=== PATIENT | male | born 1995 | race Caucasian/White ===

== ENCOUNTER 2018-04-21 11:00 | Emergency (ER) | payer SELFPAY ==
--- NOTE | 2018-04-21 11:34 | ER ---
Nurse's Notes [facility] Name: Chace Blevins Age: 23 yrs Sex: Male : 1995 Arrival Date: 04/21/2018 Time: 11:04 Bed Waiting Private MD: None, None Diagnosis: ED Course: 04/21 11:04 Patient arrived in ED. sb2 11:05 None, None is Private Physician. sb2 11:18 Patient's name was called from ER lobby. No response. hb 11:30 Patient's name was called from ER lobby. Unable to locate patient. Will disposition as hb left without being seen by a provider. Administered Medications: No medications were administered Outcome: 11:33 Patient left the ED. hb Signatures: Jackie Haq RN RN Marina Thompson sb2
== END 2018-04-21 11:33 | disposition left against medical advice (07) ==
LOC: ER 11:00
DX: Z53.21 Procedure and treatment not carried out due to patient leaving prior to being seen by health care provider (principal)

== ENCOUNTER 2024-12-09 11:32 | Emergency (ER) | payer SELFPAY ==
--- NOTE | 2024-12-09 12:36 | RAD REPORT ---
EXAM: CT brain without contrast HISTORY: Headache COMPARISON: None TECHNIQUE: Multiple contiguous axial images were obtained and a CT of the brain without contrast.. Sagittal and coronal reconstruction performed. Automated exposure control, adjustment of the mA and/or kV according to patient size, and/or iterative reconstruction. Unless otherwise specified, incidental f indings do not require dedicated imaging follow-up FINDINGS: Some images are degraded by beam hardening artifact. An intracranial bleed is not seen Ventricles are normal caliber No extra-axial fluid collection noted No significant hypodensity within the brain No fluid within the visualized sinuses or mastoids noted. IMPRESSION: No acute intracranial abnormality noted. If the patient continues to have symptoms to suggest an acute intracranial abnormality then MRI of th e brain would be recommended.
--- NOTE | 2024-12-09 12:54 | RAD REPORT ---
EXAM: Chest Abdomen Pelvis W Cont CLINICAL INDICATION: Chest and abdominal pain TECHNIQUE: CT chest, abdomen and pelvis was performed, with 100 cc Isovue-300 IV contrast, as per de partment protocol. Axial, sagittal and coronal reconstructions were obtained. One or more of the following dose reduction techniques were used: Automated exposure control, adjustment of the mA and/o r kV according to the patient size, and/or iterative reconstruction. Unless otherwise specified, incidental findings do not require dedicated imaging follow-up. [id number]. Oral contrast not given. This limits evaluation of the bowel. COMPARISON: 2014 FINDINGS: Lungs are clear. No mediastinal or hilar lymphadenopathy. No pleural effusion.. No pericardial effusion Liver, spleen, pancreas, adrenals, kidneys and bladder appear unremarkable. There is no evidence of diverticulitis Normal appendix IMPRESSION: No acute abnormality of the chest/abdomen/pelvis seen
[2024-12-09 13:00] LABS: Absolute Eosinophils 0.3 K/uL (0-0.5); Absolute Lymphocytes (CBC) 2.5 K/uL (0.7-4.9); Absolute Monocytes 0.8 K/uL (0.1-1.3); Absolute Neutrophil 4.4 K/uL (1.8-8.0); Basophils % 0.4 % (0-1.3); Eosinophils % 3.9 % (0-4.4); Hematocrit 40.2 % (39.6-49.0); Hemoglobin 14.2 g/dL (13.6-17.9); MCHC 35.3 g/dL (32.0-36.0); MCV 84.8 fL (80-100); MPV 8.1 fL (7.6-11.3); Monocytes % 9.7 % (3.3-12.3); Platelets 249 thou/uL (152-406); RBC Red Blood Cell Count 4.74 M/uL (4.33-5.43); Red Cell Distribution Width 13.2 % (12.1-15.2)
--- NOTE | 2024-12-09 13:00 | RAD REPORT ---
Procedure: Chest Single View HISTORY: Shortness of breath COMPARISON: 2014 FINDINGS: The lungs appear clear of acute infiltrate. No significant pleural effusion noted. The heart is normal size. IMPRESSION: No acute abnormality is displayed.
[2024-12-09 13:05] LABS: PT Prothrombin Time 11.5 SECONDS (10-13.0); Protime INR 1.01
[2024-12-09 13:06] LABS: PTT, Activated Partial Thromb 29.3 SECONDS (27.2-37.4)
[2024-12-09 13:45] LABS: Influenza A Ag Negative; Influenza B Ag Negative; SARS-CoV-2 Antigen Rapid Res Negative (Negative)
[2024-12-09 14:10] LABS: ALT/SGPT 59 U/L (16-61); AST/SGOT 30 U/L (15-37); Albumin 3.6 g/dL (3.4-5.0); Alkaline Phosphatase 107 U/L (45-117); Anion Gap 10.5 mEq/L (5.0-15.0); BUN Blood Urea Nitrogen 11 mg/dL (7-18); Bicarbonate 25 mEq/L (21-32); Bilirubin Total 0.3 mg/dL (0.2-1.0); Globulin 3.6 g/dL (2.3-3.5); Glomerular Filtration Rate 95 ml/min (=/>90); Glucose Level 121 mg/dL (74-106); Magnesium 2.1 mg/dL (1.6-2.4); Potassium 3.5 mEq/L (3.5-5.1); Protein, Total 7.2 g/dL (6.4-8.2); Sodium Level 135 mEq/L (136-145); Troponin High Sensitivity 3.1 pg/mL (<58.9)
[2024-12-09 14:18] LABS: Bilirubin Direct < 0.2 mg/dL (0-0.2); Bilirubin Indirect, Calculated 0.1 mg/dL (0.2-0.8)
--- NOTE | 2024-12-09 15:16 | EDPHYS ---
Physician Documentation [facility] Name: Chace Blevins Age: 29 yrs Sex: Male : 1995 Arrival Date: 12/09/2024 Time: 11:32 Bed 13 Private MD: ED Physician Mika Garcia HPI: 12/09 12:46 This 29 yrs old Male presents to ER via Ambulatory with complaints of Dizziness, rn headache. 12:47 The patient presents with dizziness, generalized weakness, lightheadedness. Onset: The rn symptoms/episode began/occurred 4 day(s) ago. Modifying factors: The symptoms are alleviated by nothing, the symptoms are aggravated by changing position. Severity of symptoms: At their worst the symptoms were moderate in the emergency department the symptoms have improved. The patient has not experienced similar symptoms in the past. Patient reports intermittent dizziness for 4 days. Worse with change in position. Associated with headache, generalized malaise and muscle aches. No fever or chills. Patient denies any chronic medical problems. Does have family history of brain tumor. Denies any neck stiffness. No chest pain or shortness of breath. No abdominal pain. No back pain. No focal neurological deficit. Patient reports feels okay right now, made an appointment with PCP but came in today to see if he could get a quicker answer.. Historical: - Allergies: 11:59 No Known Allergies; ll1 - Home Meds: 11:59 None [Active]; ll1 - PMHx: 11:59 None; ll1 - PSHx: 11:59 None; ll1 - Immunization history:: Adult Immunizations up to date. - Infectious Disease History:: Denies. - Social history:: Smoking status: Patient reports use of chewing tobacco. Reported history of juuling and/or vaping. - Family history:: not pertinent. - Hospitalizations: : No recent hospitalization is reported. ROS: 12:47 Constitutional: Negative for fever, chills, and weight loss, Cardiovascular: Negative rn for chest pain, palpitations, and edema, Respiratory: Negative for shortness of breath, cough, wheezing, and pleuritic chest pain, Abdomen/GI: Negative for abdominal pain, nausea, vomiting, diarrhea, and constipation, MS/Extremity: Negative for injury and deformity, Skin: Negative for injury, rash, and discoloration, Neuro: Negative for numbness, tingling, and seizure, Exam: 12:47 Constitutional: This is a well developed, well nourished patient who is awake, alert, rn and in no acute distress. Appears anxious Head/Face: Normocephalic, atraumatic. Eyes: Pupils equal round and reactive to light, extra-ocular motions intact. Lids and lashes normal. Conjunctiva and sclera are non-icteric and not injected. Cornea within normal limits. Periorbital areas with no swelling, redness, or edema. ENT: Moist mucous membranes, no stridor Neck: Trachea midline, no thyromegaly or masses palpated, and no cervical lymphadenopathy. Supple, full range of motion without nuchal rigidity, or vertebral point tenderness. No Meningismus. Cardiovascular: Regular rate and rhythm . No pulse deficits. Respiratory: Speaking full sentences, unlabored. Abdomen/GI: Soft, non-tender Skin: Warm, dry MS/ Extremity: Pulses equal, no cyanosis. Neurovascular intact. Full, normal range of motion. Equal circumference. Neuro: Awake and alert, GCS 15, oriented to person, place, time, and situation. Cranial nerves II-XII grossly intact. Motor strength 5/5 in all extremities. Sensory grossly intact. Cerebellar exam normal. Normal gait. 17:03 ECG was reviewed by the Attending Physician. rn Vital Signs: 11:59 BP 151 / 101; Pulse 72; Resp 17; Pulse Ox 99% on R/A; Weight 88.45 kg; Height 5 ft. 10 ll1 in. ; Pain 0/10; 12:05 BP 159 / 80; Pulse 84; Resp 20; Pulse Ox 94% ; EtCO2 100 mmHg; kj2 13:00 BP 148 / 82; Pulse 80; Resp 20; Pulse Ox 100% ; kj2 14:56 BP 132 / 72; Pulse 82; Resp 16; Temp 98.1; Pulse Ox 99% ; rk3 11:59 Body Mass Index 27.98 (88.45 kg, 177.8 cm) ll1 11:59 Pain Scale: Adult ll1 MDM: 11:36 Medical Screening Exam initiated rn 15:12 Differential diagnosis: cardiac arrhythmia, generalized weakness, hyperventilation, rn hypovolemia, idiopathic dizziness, near-syncope, vertigo. Data reviewed: vital signs, nurses notes, lab test result(s), EKG, radiologic studies, CT scan, plain films, and as a result, I will discharge patient. Counseling: I had a detailed discussion with the patient and/or guardian regarding the historical points, exam findings, and any diagnostic results supporting the discharge/admit diagnosis, lab results, radiology results, the need for outpatient follow up, to return to the emergency department if symptoms worsen or persist or if there are any questions or concerns that arise at home. Special discussion: I discussed with the patient/guardian in detail that at this point there is no indication for admission to the hospital. It is understood, however, that if the symptoms persist or worsen the patient needs to return immediately for re-evaluation. Based on the history and exam findings, there is no indication for further emergent testing or inpatient evaluation. I discussed with the patient/guardian the need to see the deer farmer for further evaluation of the symptoms. I discussed with the patient/guardian the need to see the neurologist for further evaluation of the symptoms. I discussed with the patient/guardian the need to see the primary care provider for further evaluation of the symptoms. ED course: No acute findings and workup. Negative CT head and chest abdomen pelvis. Labs unremarkable. Patient resting and asymptomatic. Talk to him at length as well as family regarding possible cardiac arrhythmia that is intermittent as well as problems like vertigo and electrolyte problems. Already has appointment with PCP. Recommend referral to cardiology for Holter monitor and given return precautions.. 15:15 ED course: Patient also noted to have mild hypertension here in the emergency room. rn When resting is 132/72. Recommend blood pressure cuff at home and monitoring.. 12/09 12:10 Order name: Basic Metabolic Panel; Complete Time: 14: rn 12/09 12:10 Order name: CBC with Diff; Complete Time: 14:18 rn 12/09 12:10 Order name: Hepatic Function; Complete Time: 14: rn 12/09 12:10 Order name: Magnesium; Complete Time: 14:20 rn 12/09 12:10 Order name: Protime (+inr); Complete Time: 14:18 rn 12/09 12:10 Order name: Ptt, Activated; Complete Time: 14:18 12/09 12:10 Order name: Troponin High Sensitivity; Complete Time: 14: rn 12/09 12:10 Order name: COVID-19 Ag + Flu A+B Ag; Complete Time: 14:18 rn 12/09 12:10 Order name: CT Head Brain wo Cont; Complete Time: 14:18 rn 12/09 12:10 Order name: Chest Single View XRAY; Complete Time: 14:18 rn 12/09 12:32 Order name: Chest Abdomen Pelvis W Cont; Complete Time: 14:18 EDMS 12/09 12:10 Order name: Cardiac monitoring; Complete Time: 12:19 rn 12/09 12:10 Order name: EKG - Nurse/Tech; Complete Time: 12: rn 12/09 12:10 Order name: IV Saline Lock; Complete Time: 13: rn 12/09 12:10 Order name: Labs collected and sent; Complete Time: 13: rn 12/09 12:10 Order name: O2 Per Protocol; Complete Time: 12: rn 12/09 12:10 Order name: O2 Sat Monitoring; Complete Time: 12:20 rn EC:03 Rate is 97 beats/min. Rhythm is regular. QRS [place] is Normal. [place] interval is normal. QRS rn interval is normal. QT interval is normal. No Q waves. T waves are Normal. No ST changes noted. Clinical impression: Normal ECG. Interpreted by me. Reviewed by me. Administered Medications: No medications were administered Disposition Summary: 12/09/24 15:15 Discharge Ordered Notes: Location: Home rn Problem: new rn Symptoms: have improved rn Condition: Stable rn Diagnosis - Dizziness and giddiness rn - Palpitations rn Followup: rn - With: Private Physician - When: As needed - Reason: Recheck today's complaints, Re-evaluation by your physician Discharge Instructions: - Discharge Summary Sheet rn - Dizziness rn - Palpitations rn Forms: - Medication Reconciliation Form rn - Antibiotic licensed journeyman electrician - Prescription Opioid Use rn - Patient Portal Instructions rn - Leadership Thank You Letter rn Signatures: Dispatcher [employer] EDMika Infante MD MD rn Lewis, Lynsay, RN RN ll1 Corrections: (The following items were deleted from the chart) 12:11 12:11 Chest Single View+RAD.RAD.BRZ ordered. EDMS EDMS 12:11 12:11 COVID-19 Ag + Flu A+B Ag+I.LAB.BRZ ordered. EDMS EDMS
--- NOTE | 2024-12-09 15:16 | ER ---
Nurse's Notes [facility] Name: Chace Blevins Age: 29 yrs Sex: Male : 1995 Arrival Date: 12/09/2024 Time: 11:32 Bed 13 Private MD: Diagnosis: Dizziness and giddiness;Palpitations Presentation: 12/09 11:59 Chief complaint: Patient states: Dizzy, nausea, unsteady, slight cough since Friday. ll1 Generalized weakness. Coronavirus screen: Client denies travel out of the [place] in the last 14 days. fatigue, headache, Client presents with at least one sign or symptom that may indicate coronavirus-19. Standard/surgical mask placed on the client. Ebola Screen: Patient denies travel to an Ebola-affected area in the 21 days before illness onset. Initial Sepsis Screen: Does the patient meet any 2 criteria? No. Patient's initial sepsis screen is negative. Does the patient have a suspected source of infection? No. Patient's initial sepsis screen is negative. Risk Assessment: Do you want to hurt yourself or someone else? Patient reports no desire to harm self or others. Onset of symptoms was December 06, 2024. 11:59 Method Of Arrival: Ambulatory ll1 11:59 Acuity: MANUEL 3 ll1 Triage Assessment: 12:02 General: Appears uncomfortable, Behavior is calm, cooperative, appropriate for age, ll1 Reports fatigue for. Neuro: Reports dizziness, headache weakness. GI: Reports nausea. Historical: - Allergies: 11:59 No Known Allergies; ll1 - Home Meds: 11:59 None [Active]; ll1 - PMHx: 11:59 None; ll1 - PSHx: 11:59 None; ll1 - Immunization history:: Adult Immunizations up to date. - Infectious Disease History:: Denies. - Social history:: Smoking status: Patient reports use of chewing tobacco. Reported history of juuling and/or vaping. - Family history:: not pertinent. - Hospitalizations: : No recent hospitalization is reported. Screenin:15 [facility] ED Fall Risk Assessment (Adult) History of falling in the last 3 months, kj2 including since admission No falls in past 3 months (0 pts) Confusion or Disorientation No (0 pts) Intoxicated or Sedated No (0 pts) Impaired Gait No (0 pts) Mobility Assist Device Used No (0 pt) Altered Elimination No (0 pt) Score/Fall Risk Level 0 - 2 = Low Risk Maintained a safe environment, Hourly rounding (assess needs \T\ fall precautionary measures) done. Abuse screen: Denies threats or abuse. Denies injuries from another. Nutritional screening: No deficits noted. Tuberculosis screening: No symptoms or risk factors identified. Assessment: 12:05 General: Appears uncomfortable, Behavior is anxious. Pain: Denies pain. Neuro: Level of kj2 Consciousness is awake, alert, obeys commands, Oriented to person, place, time, situation. Cardiovascular: Patient's skin is warm and dry. says chest feels hot. Respiratory: Airway is patent Respiratory effort is unlabored. GI: No signs and/or symptoms were reported involving the gastrointestinal system. : No signs and/or symptoms were reported regarding the genitourinary system. 13:00 Reassessment: Patient appears in no apparent distress at this time. Patient and/or kj2 family updated on plan of care and expected duration. Pain level reassessed. Patient is alert, oriented x 3, equal unlabored respirations, skin warm/dry/pink. 14:00 Reassessment: Patient appears in no apparent distress at this time. Patient and/or kj2 family updated on plan of care and expected duration. Pain level reassessed. Patient is alert, oriented x 3, equal unlabored respirations, skin warm/dry/pink. 15:07 Reassessment: Patient appears in no apparent distress at this time. Patient and/or kj2 family updated on plan of care and expected duration. Pain level reassessed. Patient is alert, oriented x 3, equal unlabored respirations, skin warm/dry/pink. Vital Signs: 11:59 BP 151 / 101; Pulse 72; Resp 17; Pulse Ox 99% on R/A; Weight 88.45 kg; Height 5 ft. 10 ll1 in. ; Pain 0/10; 12:05 BP 159 / 80; Pulse 84; Resp 20; Pulse Ox 94% ; EtCO2 100 mmHg; kj2 13:00 BP 148 / 82; Pulse 80; Resp 20; Pulse Ox 100% ; kj2 14:56 BP 132 / 72; Pulse 82; Resp 16; Temp 98.1; Pulse Ox 99% ; rk3 11:59 Body Mass Index 27.98 (88.45 kg, 177.8 cm) ll1 11:59 Pain Scale: Adult ll1 ED Course: 11:34 Patient arrived in ED. im 11:36 Mika Garcia MD is Attending Physician. rn 11:52 Arm band placed on Patient placed in an exam room, on a stretcher. ll1 12:02 Triage completed. ll1 12:05 Patient has correct armband on for positive identification. Provided Education on: call kj2 light. 12:12 Addie Saucedo, RN is Primary Nurse. kj2 12:20 Inserted saline lock: 20 gauge in left antecubital area, using aseptic technique. kj2 12:32 CT Head Brain wo Cont In Process Unspecified. EDMS 12:37 Chest Abdomen Pelvis W Cont In Process Unspecified. EDMS 12:41 Chest Single View XRAY In Process Unspecified. EDMS 15:08 No provider procedures requiring assistance completed. kj2 15:19 IV discontinued, intact, bleeding controlled, No redness/swelling at site. Pressure kj2 dressing applied. Administered Medications: No medications were administered Medication: 15:19 VIS not applicable for this client. kj2 Outcome: 15:15 Discharge ordered by . rn 15:19 Discharged to home kj2 15:19 Condition: stable 15:19 Discharge instructions given to patient, family, Instructed on discharge instructions, follow up and referral plans. Demonstrated understanding of instructions, follow-up care, 15:36 Patient left the ED. kj2 Signatures: Dispatcher [employer] EDMS Mika Garcia MD MD rn Lewis, Lynsay, RN RN ll1 Brooke Baca Addie Saucedo RN RN kj2 Katie Colon 3
[2024-12-09 15:46] VITALS: BP 132/72; TEMP 98.1; O2SAT 99
--- NOTE | 2024-12-13 11:34 | EKG ---
Test Date: 2024-12-09 Test Time: 12:16:42 Supervisor Baking: DELORES MEASUREMENT RESULTS: Intervals: Rate: 97 AR: 134 QRSD: 104 QT: 348 QTc: 441 [place]: P: 56 AR: 134 QRS: 22 T: 36 INTERPRETIVE STATEMENTS: Normal sinus rhythm Normal ECG Compared to ECG 12/09/2024 12:14:38 Sinus arrhythmia no longer present ST (T wave) deviation no longer present Prolonged QT interval no longer present Electronically Signed On 12-13-24 11:24:02 CDT by Adeel Hilton
--- NOTE | 2024-12-13 11:34 | EKG ---
Test Date: 2024-12-09 Test Time: 12:14:38 Community Service Technician: DELORES MEASUREMENT RESULTS: Intervals: Rate: 97 FL: 134 QRSD: 104 QT: 450 QTc: 571 [place]: P: 57 FL: 134 QRS: 22 T: 37 INTERPRETIVE STATEMENTS: Poor data quality, interpretation may be adversely affected Normal sinus rhythm with sinus arrhythmia Marked ST abnormality, possible lateral subendocardial injury Prolonged QT Abnormal ECG No previous ECG available for comparison Electronically Signed On 12-13-24 11:24:15 CDT by Adeel Hilton
== END 2024-12-09 15:36 | disposition home or self-care (01) ==
LOC: ER 11:32
DX: R42 Dizziness and giddiness (principal); R00.2 Palpitations; F17.220 Nicotine dependence, chewing tobacco, uncomplicated
CPT/HCPCS: 36415; 70450; 71045; 71260; 74177; 80048; 80076; 83735; 84484; 85025; 85610; 85730; 87428; 93005; 99283; Q9967